=== PATIENT | female | born 1995 | race American Indian/Alaskan Native ===

== ENCOUNTER 2024-05-06 06:49 | Emergency (ER) | payer MEDICAID ==
[~2024-05-06] VITALS: Ht 160 cm; Wt 102.0 kg
[2024-05-06 06:56] VITALS: TEMP 98
[2024-05-06 07:51] LABS: BASOPHILS # (AUTO) 0.1 X10'3 (0-0.2); EOSINOPHILS # (AUTO) 0.2 X10'3 (0-0.9); EOSINOPHILS % (AUTO) 3.3 % (0-6); HEMATOCRIT 39.9 % (35.0-45.0); HEMOGLOBIN 13.8 g/dl (12.0-16.0); LYMPHOCYTES # (AUTO) 1.3 X10'3 (1.1-4.8); LYMPHOCYTES % (AUTO) 18.3 % (21-51); MEAN CORPUSCULAR HEMOGLOBIN 30.6 PG (27.0-31.0); MEAN CORPUSCULAR HGB CONC 34.5 g/dL (33.0-36.5); MEAN CORPUSCULAR VOLUME 88.8 FL (78-98); MEAN PLATELET VOLUME 7.7 FL (7.4-10.4); MONOCYTES # (AUTO) 0.4 X10'3 (0-0.9); MONOCYTES % (AUTO) 5.1 % (2-12); NEUTROPHILS # (AUTO) 5.2 X10'3 (1.8-7.7); NEUTROPHILS % (AUTO) 72.3 % (42-75); PLATELET COUNT 291 X10'3 (140-440); RED CELL DISTRIBUTION WIDTH 13.4 % (11.5-14.5); WHITE BLOOD COUNT 7.2 X10'3 (4.5-11.0)
[2024-05-06 08:08] LABS: ALANINE AMINOTRANSFERASE 16 U/L (12-78); ALKALINE PHOSPHATASE 38 IU/L (46-116); ANION GAP 8 (8-16); ASPARTATE AMINO TRANSFERASE 12 U/L (10-37); BILIRUBIN,TOTAL 0.5 MG/DL (0.1-1.0); BLOOD UREA NITROGEN 11 MG/DL (7-18); C-REACTIVE PROTEIN 0.28 MG/DL (0.0-0.5); CALCIUM 9.1 MG/DL (8.5-10.1); CHLORIDE 105 MMOL/L (99-107); CREATININE 0.58 MG/DL (0.40-0.90); GLUCOSE 103 MG/DL (70-104); SODIUM 136 MMOL/L (135-145); TOTAL CARBON DIOXIDE 22.8 MMOL/L (24-32); TOTAL PROTEIN 8.1 G/DL (6.4-8.2); eCRCL 117 ML/MIN; eGFR > 90 ML/MIN
[2024-05-06 11:13] VITALS: BP 109/72; PULSE 70; RESP 16; O2SAT 98
[2024-05-06] MEDS ORDERED: CEPH-585 PO (21:40)
== END 2024-05-06 11:16 | disposition home or self-care (01) ==
LOC: ER 06:50
DX: R22.32 Localized swelling, mass and lump, left upper limb (principal); M79.10 Myalgia, unspecified site
CPT/HCPCS: 36415; 76882; 80053; 85025; 85651; 86140; 99284

== ENCOUNTER 2024-05-06 20:28 | Emergency (ER) | payer MEDICAID ==
[~2024-05-06] VITALS: Ht 160 cm; Wt 90.3 kg
[2024-05-06] MEDS ORDERED: CEPH-585 PO (21:40)
[2024-05-06] MEDS: cephalexin 250mg capsule PO ONE (21:54)
[2024-05-06 21:57] VITALS: BP 124/70; PULSE 88; RESP 18; TEMP 98.4; O2SAT 98
== END 2024-05-06 21:55 | disposition home or self-care (01) ==
LOC: ER 20:29
DX: L03.114 Cellulitis of left upper limb (principal); Z88.8 Allergy status to other drugs, medicaments and biological substances; Z79.2 Long term (current) use of antibiotics
CPT/HCPCS: 73080; 99283

== ENCOUNTER 2024-06-02 22:17 | Emergency (ER) | payer MEDICAID ==
[~2024-06-02] VITALS: Ht 160 cm; Wt 86.9 kg
[~2024-06-02 22:17] MED LIST: CEPH-585 PO
[2024-06-02 22:20] VITALS: TEMP 98.4
[2024-06-02 23:49] LABS: BASOPHILS # (AUTO) 0.1 X10'3 (0-0.2); BASOPHILS % (AUTO) 0.9 % (0-1); EOSINOPHILS # (AUTO) 0.3 X10'3 (0-0.9); EOSINOPHILS % (AUTO) 3.4 % (0-6); HEMATOCRIT 40.6 % (35.0-45.0); HEMOGLOBIN 13.9 g/dl (12.0-16.0); LYMPHOCYTES # (AUTO) 2.3 X10'3 (1.1-4.8); LYMPHOCYTES % (AUTO) 26.6 % (21-51); MEAN CORPUSCULAR HEMOGLOBIN 30.9 PG (27.0-31.0); MEAN CORPUSCULAR HGB CONC 34.3 g/dL (33.0-36.5); MEAN PLATELET VOLUME 7.5 FL (7.4-10.4); MONOCYTES # (AUTO) 0.6 X10'3 (0-0.9); MONOCYTES % (AUTO) 7.2 % (2-12); NEUTROPHILS # (AUTO) 5.4 X10'3 (1.8-7.7); NEUTROPHILS % (AUTO) 61.9 % (42-75); PLATELET COUNT 287 X10'3 (140-440); RED BLOOD COUNT 4.51 X10'6 (4.20-5.60); RED CELL DISTRIBUTION WIDTH 13.3 % (11.5-14.5); WHITE BLOOD COUNT 8.7 X10'3 (4.5-11.0)
[2024-06-03 00:02] LABS: ALANINE AMINOTRANSFERASE 24 U/L (12-78); ALBUMIN 4.1 G/DL (3.4-5.0); ALBUMIN/GLOBULIN RATIO 1.1 (1.1-1.5); ALKALINE PHOSPHATASE 41 IU/L (46-116); ANION GAP 9 (8-16); ASPARTATE AMINO TRANSFERASE 35 U/L (10-37); BILIRUBIN,TOTAL 0.3 MG/DL (0.1-1.0); BLOOD UREA NITROGEN 16 MG/DL (7-18); BUN/CREATININE RATIO 22.2 (10.0-20.0); CALCIUM 9.6 MG/DL (8.5-10.1); CHLORIDE 107 MMOL/L (99-107); CREATININE 0.72 MG/DL (0.40-0.90); GLUCOSE 103 MG/DL (70-104); LIPASE 25 U/L (16-77); POTASSIUM 3.9 MMOL/L (3.5-5.1); SODIUM 143 MMOL/L (135-145); TOTAL CARBON DIOXIDE 27.2 MMOL/L (24-32); eCRCL 95 ML/MIN; eGFR > 90 ML/MIN
[2024-06-03 00:36] LABS: HCG SERUM QL NEGATIVE
[2024-06-03 01:15] LABS: BILIRUBIN,URINE NEGATIVE (Neg); CLARITY,URINE SLIGHTLY CLOUDY (Clear); COLOR,URINE YELLOW (Yellow); GLUCOSE, URINE NEGATIVE (Neg); KETONES,URINE NEGATIVE (Neg); LEUKOCYTE ESTERASE ,URINE NEGATIVE (Neg); NITRITES, URINE NEGATIVE (Neg); OCCULT BLOOD,URINE NEGATIVE (Neg); PROTEIN,URINE NEGATIVE (Neg); UROBILINOGEN,URINE 0.2 E.U/dL (0.2-1.0)
[2024-06-03 01:17] LABS: UA COLLECTION TYPE CLN CATCH MIDSTREAM
[2024-06-03 01:23] LABS: BACTERIA,URINE FEW /HPF (Neg); RBC,URINE 0-2 /HPF (0-2); SQUAMOUS EPITHELIAL CELL,UR MODERATE /LPF (FEW); WBC,URINE 0-4 /HPF (0-4)
[2024-06-03 01:24] LABS: MUCUS STRANDS FEW /LPF (Neg)
[2024-06-03] MEDS ORDERED: FAMO-129 PO (03:10)
[2024-06-03 03:23] VITALS: BP 112/71; PULSE 77; RESP 18; O2SAT 98
== END 2024-06-03 03:25 | disposition home or self-care (01) ==
LOC: ER 22:17
DX: R10.12 Left upper quadrant pain (principal); Z88.8 Allergy status to other drugs, medicaments and biological substances; Z79.2 Long term (current) use of antibiotics
CPT/HCPCS: 36415; 74176; 80053; 81001; 83605; 83690; 84703; 85025; 87040; 99284